=== PATIENT | male | born 1965 | race Caucasian/White ===

== ENCOUNTER 2021-11-09 04:05 | Emergency (ER) | payer OTHER, SELFPAY ==
[2021-11-09 04:06] VITALS: BP 140/83; PULSE 103; RESP 18; TEMP 36.6; O2SAT 99
--- NOTE | 2021-11-09 04:31 | EKG12_ITS ---
Test Reason : CP Blood Pressure : / mmHG Vent. Rate : 097 BPM Atrial Rate : 097 BPM P-R Int : 144 ms QRS Dur : 084 ms QT Int : 338 ms P-R-T Axes : 051 045 058 degrees QTc Int : 429 ms Normal sinus rhythm Septal infarct , age undetermined Abnormal ECG Confirmed by CORWIN SAL, ALEXIA ([id number]), school photograph editor GEOFFREY MENJIVAR ([id number]) on 11/10/2021 1:42:03 PM Referred By: Elsie Confirmed By:ALEXIA OLIVIA MD
[2021-11-09 04:38] LABS: Absolute Lymphocyte Count 2.03 X10^3/uL (0.83-4.51); Absolute Neutrophil Count 7.6 X10^3/uL (2.0-7.7); Basophil# 0.03 X10^3/uL; Basophil% 0.3 % (0-1); Eosinophil# 0.13 X10^3/uL; Eosinophils% 1.2 % (0-5); Hematocrit 50.2 % (40-54); Hemoglobin 16.7 g/dL (13.0-16.5); Lymphocyte # 2.03 X10^3/ul (0.83-4.51); Lymphocyte % 18.8 % (19-41); Mean Corp Hgb Conc 33.3 g/dL (32-36); Mean Corpuscular Hgb 29.2 pg (27.0-32.0); Mean Corpuscular Volume 87.9 fL (80-94); Mean Platelet Vol. 9.7 fl (6.2-12.0); Monocyte# 1.01 X10^3/uL; Monocyte% 9.3 % (0-10); NRBC Flagged by Analyzer 0 % (0-5); Neutrophil # 7.59 X10^3/uL (2.7-7.7); Neutrophil % 70.1 % (47-70); Platelet Count 340 K/mm3 (150-450); RBC Distribution Width CV 12.7 % (11.6-14.6); RBC Distribution Width SD 40.9 fl (35.1-43.9); Red Blood Count 5.71 M/mm3 (4.6-6.2); White Blood Count 10.8 K/mm3 (4.4-11.0)
[2021-11-09] MEDS: 0.9% Normal Saline 1,000 ML 999 ML IV (04:48)
[2021-11-09] MEDS: Aspirin 81 MG TAB.CHEW 243 MG PO (04:49)
[2021-11-09] MEDS: Mag Hydrox/Al Hydrox/Simeth 30 ML UDC PO (04:50)
[2021-11-09 04:52] LABS: International Normalized Ratio 0.9; Prothrombin Time (Protime)PT. 12.2 SECONDS (11.7-14.9)
[2021-11-09 04:53] LABS: Partial Thromboplast Time 30.1 Seconds (24.1-36.2)
--- NOTE | 2021-11-09 04:54 | EDS_ITS ---
HPI History of Present Illness Chief Complaint: Chest Pain Narrative Narrative: Patient is a 56-year-old male with history of diabetes and hypertension. He states he ate lasagna for lunch yesterday afternoon and shortly after this developed some pain in the upper abdomen/lower midline chest. He states that he would was able to take some Tums as well as some Tylenol and the pain got slightly better but did not resolve. He states that as time as 1 on the pain has persisted but now he is noticing pain with inspiration. He denies any recent surgery travel or history of DVT/PE but does report a family history of it. He states that as his symptoms have not resolved he is concerned and secondary to his presents for evaluation. Patient does reiterate that the pain has been constant for over 12 hours at this time [facility] Medical History Diabetes Hypertension Home Medications empagliflozin 10 mg tablet (Jardiance) mg PO DAILY 11/09/21 [History Last Taken Unknown] insulin glargine 100 unit/mL (3 mL) subcutaneous pen (Lantus Solostar U-100 Insulin) 9 unit subcut QHS 11/09/21 [History Last Taken Unknown] lisinopril 10 mg tablet 10 mg PO DAILY 11/09/21 [History Last Taken Unknown] metformin 500 mg tablet,extended release 24 hr 1,000 mg PO BREAKFAST 11/09/21 [History Last Taken Unknown] metformin 500 mg tablet,extended release 24 hr 500 mg PO DINNER 11/09/21 [History Last Taken Unknown] pantoprazole 40 mg tablet,delayed release (Protonix) 40 mg PO DAILY 30 days #30 tabs 11/09/21 [Rx Last Taken Unknown] Allergy/AdvReac Type Severity Reaction Status Date / Time No Known Allergies Allergy Verified 11/09/21 04:16 Social History Smoking Status: Never smoker [facility] ED Constitutional Constitutional ED: Denies chills or fever(s) ENT ENT ED: Denies sore throat Cardiovascular Cardiovascular: Reports chest pain; Denies palpitations or racing heartbeat Respiratory/Chest Respiratory/Chest: Denies cough or dyspnea Gastrointestinal Gastrointestinal: Reports abdominal pain; Denies diarrhea, nausea or vomiting Genitourinary Genitourinary ED: Denies dysuria Musculoskeletal Musculoskeletal: Denies myalgias Integumentary Denies rash Neurologic Neurologic: Denies headache(s) Hematologic/Lymphatic Hematologic/Lymphatic: Denies easy bleeding or easy bruising EXAM Physical Exam Const Vital Signs: 11/09/21 04:06 11/09/21 04:10 Temperature 97.9 F Temperature Source Oral Pulse Rate 103 H Respiratory Rate 18 Respiratory Effort Normal Non-Labored Blood Pressure 140/83 H Blood Pressure Mean 102 Pulse Ox 99 Oxygen Delivery Method Room Air Positive well nourished and well developed General Appearance ED: well developed Eyes PERRL and EOMs intact bilaterally General Eye ED: Negative for scleral icterus Neck supple Resp normal respiratory effort and clear to auscultation bilaterally Cardio regular rhythm Rate: tachycardic and other Other Details: Tachycardic rate with regular rhythm. Radial pulses are plus 2 out of 4 bilaterally are equal and Carotid pulses are equal as well GI normal to inspection, nondistended, normoactive bowel sounds, non-tender and non-distended GI Narrative: No voluntary guarding or rigidity no pulsatile mass Auscultation: normoactive bowel sounds Palpation: soft Extremity normal to inspection Extremity Narrative: No smell edema no pitting edema negative Homans' sign bilaterally Neuro oriented x3 and CN's II-XII intact bilaterally Sensorium / Orientation: alert Psych mental status grossly normal Skin no rashes or lesions noted Skin Narrative: No jaundice noted MDM MDM MDM Narrative Medical decision making narrative: Presented to the ER afebrile but slightly tachycardic. He reported constant chest pain for over 12 hours and therefore I felt if he had a normal EKG and troponin the chance of this being cardiac was low. He does have a family history of DVT/PE and does report prolonged immobilization with sitting for hours at work. His report of chest pain with inspiration as well as these risk factors did lead me to perform a CT scan. The CTA of his chest revealed no pulmonary embolus or dissection. It did show a pulmonary nodule and blebs. These results were discussed with the patient. He understands that there is a chance this could be neoplastic in nature and he will need to follow-up with pulmonology to discuss further testing. However at this time his work-up does not show changes for acute cardiac event and with the changes noted in his lung field he is not hypoxic or having increased work of breathing and therefore I do not feel he needs to be admitted to further work this up. The patient was informed of this and he is agreeable to the plan of care Lab Data Attestation: I reviewed the patient's lab results. Labs: Laboratory Results - last 24 hr 11/09/21 11/09/21 11/09/21 04:10 04:10 04:10 WBC 10.8 RBC 5.71 Hgb 16.7 H Hct 50.2 MCV 87.9 MCH 29.2 MCHC 33.3 RDW Std Deviation 40.9 RDW Coeff of Vandana 12.7 Plt Count 340 MPV 9.7 Immature Gran % (Auto) 0.300 Neut % (Auto) 70.1 H Lymph % (Auto) 18.8 L [place] % (Auto) 9.3 Eos % (Auto) 1.2 Baso % (Auto) 0.3 Absolute Neuts (auto) 7.6 Absolute Lymphs (auto) 2.03 Nucleated RBC % 0 PT 12.2 INR 0.9 APTT 30.1 Sodium 136 Potassium 4.0 Chloride 99 Carbon Dioxide 29.0 Anion Gap 8 BUN 18 Creatinine 0.86 Estim Creat Clear Calc 79.32 Est GFR (MDRD) Af Amer 118 Est GFR (MDRD) Non-Af 97 BUN/Creatinine Ratio 21.0 H Glucose 173 H Calcium 9.6 Magnesium 2.1 Total Bilirubin 0.70 Direct Bilirubin 0.18 AST 24 ALT 26 Alkaline Phosphatase 84 Troponin I High Sens 4 Total Protein 8.0 Albumin 3.8 Globulin 4.2 Lipase 45 L Radiography Diagnostic Testing: Clinical Impression(s) from Imaging Studies Chest CTA 11/09/21 05:10 IMPRESSION: No pulmonary embolism. No aortic dissection. 7.2 mm right lower lobe pulmonary nodule well circumscribed borders with right hilar borderline lymph node and a borderline precarinal lymph node. Recommend correlation with clinical history. Consider follow-up study such as PET scan for further evaluation or could consider a short-term interval follow-up study in 3-6 months to ensure stability. In comparison to a prior study of available would be helpful to establish stability. There is a pattern of multifocal cystic blebs throughout the lungs compatible with underlying cystic lung disease. Consider possibilities such as pulmonary Langerhans'' cell histiocytosis. Correlation with smoking history. Consider prior infection potentially lymphocytic interstitial pneumonia history. Electronically Signed: Tierra Dowell MD at 5:53 EDT , Discharge Plan Triage Chief Complaint: Chest Pain ED Provider: Mauri Zimmerman Dx/Rx/DC Orders Clinical Impression: Pleuritic chest pain, Pulmonary nodule, Lung blebs, Diabetes mellitus Instructions: ED Chest Pain, Uncertain Cause, ED Pulmonary Nodule, Solitary Prescriptions: New pantoprazole [Protonix] 40 mg tablet,delayed release (DR/EC) 40 mg PO DAILY 30 Days Qty: 30 0RF No Action lisinopril 10 mg tablet 10 mg PO DAILY metformin 500 mg tablet extended release 24 hr 1,000 mg PO BREAKFAST metformin 500 mg tablet extended release 24 hr 500 mg PO DINNER insulin glargine [Lantus Solostar U-100 Insulin] 100 unit/mL (3 mL) insulin pen 9 unit SUBCUT QHS Jardiance 10 mg tablet PO DAILY Label Comments: take 1 tablet by mouth daily every morning Primary Care Provider: Yunior Castro Referrals: Chivo Licona MD [Med Staff - Active Staff] - 1 Week Yunior Castro MD [Primary Care Provider] - Activity Restrictions/Additional Instructions: Please follow-up with pulmonology regarding the abnormal findings found on today's chest CT as you may need further testing such as a PET scan biopsy and/or repeat CT scan in the next 3 months. Please return to the ER should you have any further concern Disposition Disposition: Home, Self Care
[2021-11-09 05:03] LABS: AST(SGOT) 24 U/L (15-37); Alanine Aminotransfer ALT/SGPT 26 U/L (16-61); Albumin, Serum 3.8 g/dL (3.2-5.0); Alkaline Phosphatase 84 U/L (45-117); Anion Gap 8 (5-15); BUN 18 mg/dL (7-18); Bilirubin, Direct 0.18 mg/dL (0.00-0.30); Calcium,Total 9.6 mg/dL (8.5-10.1); Chloride 99 mmol/L (98-107); Creatinine, Serum 0.86 mg/dL (0.70-1.30); EST Glomerular Filtration Rate 97 mL/min (>60); Est Glom Filt Rate - Afr Amer 118 mL/min (>60); Estimated Creatinine Clearance 79.32 ml/min; Globulin 4.2 g/dL (2.2-4.2); Glucose 173 mg/dL (74-106); Lipase 45 U/L (73-393); Magnesium 2.1 mg/dL (1.6-2.6); Sodium Level 136 mmol/L (136-145); Troponin-I HS 4 pg/mL (3.0-78.0)
--- NOTE | 2021-11-09 05:10 | CT_ITS ---
STUDY: CTA CHEST REASON FOR EXAM: Male, 56 years old. Chest pain RADIATION DOSAGE (If Supplied By Facility): CTDIvol = ( 4.85 ) mGy, DLP = ( 176.65 ) mGycm TECHNIQUE: The examination was performed with the intravenous administration of 100ML OF ISOVUE 370. Post-processing of the angiographic images was performed, with multiplanar reformation and 3D reconstruction. Individualized dose optimization techniques were used for this CT. COMPARISON: None. FINDINGS: Normal enhancement of the main pulmonary artery and right and left pulmonary arteries. Normal enhancement of the bilateral peripheral pulmonary arteries. There is no demonstrated pulmonary embolism. The aorta is minimally calcified. There is no demonstrated aortic dissection. There is borderline cardiac enlargement with a prominent appearance of the left ventricle. There is a precarinal lymph node measuring 1.2 cm. There is a right hilar lymph node measuring 1.1 cm. Normal visualized trachea and bronchi. Multiple cystic blebs throughout the lungs. These are random distribution and of different sizes. Within the right lower lobe there is a solid-appearing pulmonary nodule measuring 7.2 mm with a trace amount of adjacent inflammatory change. This could potentially represent a small focus of mucus plugging and/or other nodule. No other similar-appearing nodules are demonstrated. Normal pleura. Normal chest wall structures. There are multilevel bridging osteophytes. There is degenerative change within the thoracic spine. There is moderate stool within the visualized colon. CT/CTA Chest W/WO Contrast IMPRESSION: No pulmonary embolism. No aortic dissection. 7.2 mm right lower lobe pulmonary nodule well circumscribed borders with right hilar borderline lymph node and a borderline precarinal lymph node. Recommend correlation with clinical history. Consider follow-up study such as PET scan for further evaluation or could consider a short-term interval follow-up study in 3-6 months to ensure stability. In comparison to a prior study of available would be helpful to establish stability. There is a pattern of multifocal cystic blebs throughout the lungs compatible with underlying cystic lung disease. Consider possibilities such as pulmonary Langerhans'' cell histiocytosis. Correlation with smoking history. Consider prior infection potentially lymphocytic interstitial pneumonia history. Electronically Signed: Tierra Dowell MD at 5:53 EDT ,
[2021-11-09 06:18] VITALS: BP 118/72; PULSE 99; RESP 14; O2SAT 99
== END 2021-11-09 06:39 | disposition home or self-care (01) ==
PROVIDERS: Emergency Provider Emergency Medicine; PCP Family Medicine; Visit Provider Emergency Medicine
DX: R07.81 Pleurodynia (principal); J43.9 Emphysema, unspecified; E11.9 Type 2 diabetes mellitus without complications; Z79.4 Long term (current) use of insulin; I10 Essential (primary) hypertension; R91.1 Solitary pulmonary nodule; Z79.84 Long term (current) use of oral hypoglycemic drugs; Z79.899 Other long term (current) drug therapy; Z83.2 Family history of diseases of the blood and blood-forming organs and certain disorders involving the immune mechanism
CPT/HCPCS: 71275; 80048; 80076; 83690; 83735; 84484; 85025; 85610; 85730; 93005; 96365; 99284; Q9967; A4216

== ENCOUNTER → 2021-11-24 | Outpatient (CLI) | payer OTHER, SELFPAY ==
[2021-11-24] VITALS (11 sets, daily range): BP systolic 107–161; BP diastolic 58–84; PULSE 73–95; RESP 12–21; TEMP 36.9; O2SAT 96–99
--- NOTE | 2021-11-24 | ASPIGT_PTH ---
PATIENT: ANGEL GARCÍA LOC: [place] U#:[id number] AGE/SX: 56/M ROOM: RE11/24/[address]: Dr. Chivo Licona MD : 1965 BED: DIS: 11/24/2021 SPEC #: [id number] RECD: 11/24/21 10:04 STATUS: ROBER JHOANA #: [id number] KITA: 11/24/21 00:[address]: Chivo Licona DEPT: SURGICAL PATHOLOGY RECD BY: Clinton Wu ENTERED: 11/24/21 10:04 SP TYPE: ASP RAD OTHR DR: Dr. Yunior Castro MD Tissues: Lung, NOS Procedures: FNA Specimen Adequacy Special Stain Group II Special Stain Group I Surgery Specimen Level IV AFB Stain (control) GMS Stain (control) Imprint (control) HEADER OPERATION: CT-guided lung biopsy RLL PRE-OP DIAGNOSIS: RLL lung nodule TISSUE SUBMITTED: RLL lung MICROSCOPIC DIAGNOSIS Right lower lobe lung nodule, CT-guided core biopsy: Lung parenchymal tissue with fibrosis, chronic inflammation, necrosis and necrotizing granuloma formation. Negative for malignancy. See comment. Camila 11/27/2021 COMMENT The specimen is evaluated at the time of biopsy by Dr. Headley. Immediate Evaluation = Mildly atypical cells noted. Special stains for acid fast bacilli and fungi are negative for organisms; matched controls are appropriate. Correlation with clinical, radiologic findings and appropriate follow up are necessary. Case has been reviewed in consultation with Dr. Cruz who concurs with the above diagnosis. IDC:AM MICROSCOPIC DESCRIPTION Slides are reviewed. GROSS DESCRIPTION Received in fixative is one container labeled with the patient's name and designated RLL lung. The specimen consists of multiple irregular fragments of hopkins soft tissue that in aggregate measure 1.5 x 0.1 x <0.1 cm. The specimen is totally submitted in one cassette. Two touch imprints are prepared at the time of core biopsy. / Camila 11/24/2021 TC:3 CPT: 27298, 93608, 908306 x2
--- NOTE | 2021-11-24 08:04 | CT_ITS ---
PROCEDURE: CT GUIDED CORE NEEDLE BIOPSY OF A right lower lobe LUNG LESION INDICATION: Male, 56 years old. RLL lung nodule PHYSICIAN: Dr. PRIETO Mullen CONSENT: Written informed consent was obtained having explained the risks, benefits and alternatives in detail with the patient who accepted the risks and agreed to proceed. Laboratory review and clinical assessment was performed. CONSCIOUS SEDATION PROTOCOL: The Drugs used were: 1 mg Versed, IV., and 25 mcg Fentanyl, IV. The sedation time was: 30 minutes. Conscious sedation was started at 9:04 AM and terminated at 9:34 AM. The conscious sedation protocol was independently monitored. RADIATION DOSAGE (If Supplied By Facility): CTDIvol = ( 17 ) mGy, DLP = ( 532.82 ) mGycm Individualized dose optimization techniques were used for this CT. TECHNIQUE: The patient was placed in the prone position. A noncontrast CT was performed to localize the lesion in the right lower lobe . The skin surface was prepped and draped in a sterile fashion. 1% lidocaine was used for local anesthesia. Using CT guidance, a 20-gauge coaxial biopsy device was advanced to the periphery of the lesion. A total of 5 core specimens were obtained. The specimens were placed in a formalin solution. A post procedure CT demonstrated no adverse sequelae or pneumothorax. The patient tolerated the procedure well without adverse event. A negative biopsy does not exclude malignancy. Further imaging or clinical followup based on patient condition and degree of clinical suspicion for malignancy. Suggest rebiopsy, if biopsy results do not match with clinical scenario. CT/Biopsy/Inj or Needle Placement IMPRESSION: 1. CT directed core needle biopsy of the right lower lobe nodule using CT image guidance with image documentation as described. Pathology results are pending. 2. Conscious Sedation protocol utilized with independent monitoring. Electronically Signed: Jesus Celaya MD at 10:11 EDT ,
[2021-11-24] MEDS: Midazolam 2 MG/2 ML Syringe IV (09:04)
[2021-11-24] MEDS: fentaNYL 100 MCG/2 ML Ampul IV (09:04)
[2021-11-24] MEDS: Lidocaine 2% (10 ml mdv) 10 ML Vial INFILT (09:19)
--- NOTE | 2021-11-24 09:30 | RAD_ITS ---
STUDY: X-RAY CHEST REASON FOR EXAM: Male, 56 years old. POST BIOPSY -- Immediately post lung biopsy TECHNIQUE: AP inspiration immediately following a right lung biopsy. COMPARISON: None. FINDINGS: No evidence of pneumothorax on the immediate post right lung biopsy radiographs. RAD/Chest Insp/Exp 2 View IMPRESSION: No evidence of pneumothorax on the immediate post right lung biopsy. Electronically Signed: Jesus Celaya MD at 9:51 EDT ,
--- NOTE | 2021-11-24 11:30 | RAD_ITS ---
STUDY: X-RAY CHEST REASON FOR EXAM: Male, 56 years old. POST BIOPSY -- 2 hours post lung biopsy TECHNIQUE: AP inspiration and expiration views. COMPARISON: Comparison is made with prior study done earlier in the day. FINDINGS: The patient is status post right lower lobe pulmonary nodule biopsy. There is no evidence of pneumothorax on the delayed images. RAD/Chest Insp/Exp 2 View IMPRESSION: No evidence of pneumothorax on the 2 hour delayed radiographs. Electronically Signed: Jesus Celyaa MD at 8:40 EDT ,
== END | disposition home or self-care (01) ==
LOC: CT 08:04
PROVIDERS: PCP Family Medicine; Referring Provider Internal Medicine Critical Care Medicine; Visit Provider Internal Medicine Critical Care Medicine
DX: J84.10 Pulmonary fibrosis, unspecified (principal)
CPT/HCPCS: 32408; 71046; 77012; 88172; 88305; 88312; 88313; 99156; 99157; J7050; A4216; C2613

== ENCOUNTER → 2021-12-06 | Outpatient (CLI) | payer OTHER, SELFPAY ==
--- NOTE | 2021-12-06 12:42 | PFT ---
INTRODUCTION: The patient is a 56-year-old male that presents for pulmonary function studies secondary to a diagnosis of lung nodule. Respiratory therapy reported good patient effort. Bronchodilators were used during testing. INTERPRETATION: Forced expiration spirometry demonstrates no evidence of a large airways obstructive ventilatory defect. There was no significant response to aerosolized bronchodilators. Spirograms are of good quality and plateau normally. Body plethysmography was performed and reveals lung volumes to be within normal limits. Diffusing capacity by single breath CO is also within normal limits. IMPRESSION: Grossly normal pulmonary function studies.
== END | disposition home or self-care (01) ==
LOC: PSN 10:29
PROVIDERS: PCP Family Medicine; Referring Provider Internal Medicine Critical Care Medicine; Visit Provider Internal Medicine Critical Care Medicine
DX: R91.1 Solitary pulmonary nodule (principal)
CPT/HCPCS: 94060; 94726; 94729

== ENCOUNTER → 2022-01-26 | Outpatient (CLI) | payer OTHER, SELFPAY ==
--- NOTE | 2022-01-26 12:52 | CT_ITS ---
STUDY: CT CHEST WITHOUT CONTRAST REASON FOR EXAM: Male, 56 years old. 3 month F/U RLL nodule RADIATION DOSAGE (If Supplied By Facility): CTDIvol = ( 5.18 ) mGy, DLP = ( 197.11 ) mGycm TECHNIQUE: Transaxial imaging was performed without the administration of intravenous contrast material. Multiplanar coronal and sagittal images were reformatted. Individualized dose optimization techniques were used for this CT. COMPARISON: Comparison is made with prior study dated 11/09/2021. FINDINGS: CHEST Scattered bulla are seen in the upper lobes. Bulla are also seen in the lower lobes. There is a 7.3 mm x 13.4 mm irregular nodular density in the posterior medial segment of the right lower lobe. This has increased in size as compared to prior study. Correlation with PET scan and/or biopsy recommended. There is no demonstrated pleural abnormality. There are calcifications of the coronary arteries. Normal mediastinum. Normal hilar regions. Normal unenhanced pulmonary arteries. Mild degree of atherosclerotic plaque formation of the aortic arch. There are multi-level degenerative changes of the thoracic spine. There is no demonstrated abnormality of the visualized upper abdomen. CT/Chest without Contrast IMPRESSION: Increase in size of the irregular nodule in the posterior aspect of the right lower lobe as described. Correlation with PET scan and/or biopsy recommended. Electronically Signed: Jesus Celaya MD at 13:41 EDT ,
== END | disposition home or self-care (01) ==
LOC: CT 12:51
PROVIDERS: PCP Family Medicine; Referring Provider Internal Medicine Critical Care Medicine; Visit Provider Internal Medicine Critical Care Medicine
DX: R91.1 Solitary pulmonary nodule (principal)
CPT/HCPCS: 71250

== ENCOUNTER → 2022-05-05 | Outpatient (CLI) | payer OTHER, SELFPAY ==
--- NOTE | 2022-05-05 08:00 | CT_ITS ---
INDICATION: 1 cm lung mass EXAMINATION: CT CHEST WITHOUT CONTRAST - CT Chest W/O Contrast Injection TECHNIQUE: Helically acquired images were obtained of the chest. A radiation dose optimization technique was used for this scan. IV Contrast dosage and agent: None. COMPARISON: CT chest 01/26/2022. Images and report. FINDINGS: LUNGS: The nodule in the right lower lobe 12 x 9 mm, not significantly changed in measurement compared to the prior study but appears more rounded configuration especially on the sagittal reformats. Scattered small adjacent nodules and reticular changes also appear increased. No remote nodules identified. Emphysematous changes.. LARGE AIRWAYS: Unremarkable. PLEURA: No pleural effusion. No pneumothorax. MEDIASTINUM: Unremarkable. HEART: Not enlarged. Minimal coronary artery calcifications. AORTA/VESSELS: No aortic aneurysm. ESOPHAGUS: Unremarkable. with UPPER ABDOMEN: No acute findings. BONES/SOFT TISSUES: No acute abnormality. OTHER/LINES: None. CT/Chest without Contrast IMPRESSION: Slightly increased size of the 12 mm nodule in the right lower lobe and increased adjacent small nodular components. As previously recommended, correlation with PET/CT and/or biopsy recommended. Electronically Signed: Halie Gary MD at 5:58 EST ,
== END | disposition home or self-care (01) ==
LOC: CT 07:58
PROVIDERS: PCP Family Medicine; Referring Provider Nurse Practitioner Acute Care; Visit Provider Nurse Practitioner Acute Care
DX: R91.1 Solitary pulmonary nodule (principal)
CPT/HCPCS: 71250

== ENCOUNTER → 2022-07-13 | Outpatient (CLI) | payer OTHER, SELFPAY ==
--- NOTE | 2022-07-13 10:01 | RAD_ITS ---
STUDY: X-RAY CHEST REASON FOR EXAM: Male, 57 years old. Postop from lobectomy TECHNIQUE: PA and lateral views of the chest. COMPARISON: 11/24/2021 FINDINGS: There is volume loss in the right hemithorax with a right pneumothorax affecting approximately 50% of the right hemithorax without mediastinal shift. There is blunting of the right costophrenic angles suggesting free-flowing effusion. Left lung is clear and well expanded without evidence of a superimposed process. Normal size heart. Normal mediastinum and desiree. Normal visualized pulmonary arteries. Normal visualized aortic arch and descending thoracic aorta. There are diffuse degenerative changes of the visualized thoracic spine. Normal visualized ribs, clavicles, and shoulders. Small amount of subcutaneous emphysema along the right chest There is no demonstrated abnormality of the visualized soft tissue structures of the upper abdomen. RAD/Chest PA and Lateral IMPRESSION: 15% right-sided pneumothorax without mediastinal shift Right pleural effusion Left lung is free of a superimposed acute pulmonary process Right subcutaneous emphysema Electronically Signed: Silver Gauthier MD at 10:25 EDT ,
== END | disposition home or self-care (01) ==
PROVIDERS: PCP Family Medicine
DX: J90 Pleural effusion, not elsewhere classified (principal)
CPT/HCPCS: 71046

== ENCOUNTER → 2022-07-25 | Outpatient (CLI) | payer OTHER, SELFPAY ==
--- NOTE | 2022-07-25 12:11 | RAD_ITS ---
EXAM: XR CHEST, 2 VIEWS CLINICAL INDICATION: pleural effusion right TECHNIQUE: Frontal and lateral views of the chest. This report was created using [employer] report generation technology. COMPARISON: 07/13/2022 FINDINGS: LUNGS AND PLEURAL SPACES: Right-sided effusion is unchanged. There has been resolution of a right-sided pneumothorax. HEART: Unremarkable. Cardiac silhouette not enlarged. MEDIASTINUM: Central airways and mediastinal contour are unremarkable. BONES/JOINTS: Unremarkable. SOFT TISSUES: Unremarkable. RAD/Chest PA and Lateral IMPRESSION: No change in the right-sided effusion. There has been resolution of a right-sided pneumothorax. Electronically Signed: Yuan Haro MD at 0:08 EDT ,
== END | disposition home or self-care (01) ==
LOC: RAD 12:11
PROVIDERS: PCP Family Medicine; Referring Provider Nurse Practitioner Acute Care; Visit Provider Nurse Practitioner Acute Care
DX: J90 Pleural effusion, not elsewhere classified (principal)
CPT/HCPCS: 71046

== ENCOUNTER → 2022-07-27 | Outpatient (CLI) | payer OTHER, SELFPAY ==
--- NOTE | 2022-07-27 11:28 | US_ITS ---
PROCEDURE: ULTRASOUND GUIDED THORACENTESIS. DATE: July 27, 2022. INDICATION: Male, 57 years old. Right pleural effusion. PHYSICIAN: Jesus Celaya M.D. PROCEDURE: The risks, benefits, and alternatives to the procedure were explained to the patient. The specific risks of bleeding, infection, and pneumothorax requiring chest tube insertion were discussed and accepted. Written informed consent was obtained. Ultrasonographic evaluation of the right lower pleural space was carried out. An adequate pocket was identified. The patient was placed in the sitting, upright position. The overlying skin was prepped and draped in sterile fashion. 1% lidocaine was administered subcutaneously for local anesthesia. Under ultrasound guidance, a 5 [place] thoracentesis needle/catheter system was advanced into the right posterior lower pleural fluid collection. Approximately 200 mL of bloody fluid was drained. The catheter was removed, and a sterile dressing was applied. A specimen was collected and sent to the laboratory for analysis, as requested by the referring clinician. The patient tolerated the procedure well. A chest x-ray was ordered. US/Thoracentesis W US IMPRESSION: Ultrasound-guided right thoracentesis. Electronically Signed: Jesus Celaya MD at 12:50 EDT ,
[2022-07-27 12:05] VITALS: BP 148/90; BP 149/87; BP 152/90; PULSE 117; PULSE 122; PULSE 133; RESP 18; TEMP 37.7; O2SAT 97; O2SAT 98
[2022-07-27] MEDS: Lidocaine 2% (20 ml mdv) 20 ML Vial INFILT (12:07)
--- NOTE | 2022-07-27 12:10 | FLU_PTH ---
PATIENT: ANGEL GARCÍA LOC: [facility]#:[id number] AGE/SX: 57/M ROOM: RE07/27/[address]: SARI Mitchell : 1965 BED: DIS: 07/27/2022 SPEC #: [id number] RECD: 07/27/22 13:55 STATUS: ROBER ELY #: [id number] KITA: 07/27/22 12:[address]: Annie Self NP DEPT: CYTOLOGY RECD BY: Catalina Bedoya ENTERED: 07/27/22 13:56 SP TYPE: Fluid OTHR DR: Dr. Yunior Castro MD Tissues: Pleural fluid, NOS Procedures: Special Stain Group II Surgery Specimen Level IV Cytospin Fluid HEADER OPERATION: Thoracentesis right PRE-OP DIAGNOSIS: Right pleural effusion TISSUE SUBMITTED: Thoracentesis fluid for cytology DIAGNOSIS CYTOLOGY Thoracentesis fluid for cytology (cell block): Negative for malignant cells. See comment. SJ:ni 08/01/2022 COMMENT Flow cytometry study from [facility] shows no immunophenotypic evidence of a monoclonal B cell or aberrant T cell population detected. The complete report is viewable in EMR. CYTOLOGY STUDY Slides are reviewed. CYTOLOGY GROSS Received is 80 ml of dark red cloudy fluid labeled with the patient's name and and designated per the requisition as thoracentesis. Submitted for cytology preparation including cell block. / ni 07/27/2022 TC:5 CPT: 98519, 75364
--- NOTE | 2022-07-27 12:15 | RAD_ITS ---
STUDY: X-RAY CHEST REASON FOR EXAM: Male, 57 years old. Post thora TECHNIQUE: AP inspiration and expiration views. COMPARISON: Comparison is made with prior study dated on July 25, 2022. FINDINGS: The patient is status post right thoracentesis. No evidence of pneumothorax. Mild residual pleural-parenchymal changes at the right lung base. RAD/Chest Insp/Exp 2 View IMPRESSION: Status post right thoracentesis. No evidence of pneumothorax. Residual pleural parenchymal changes at the right lung base. Electronically Signed: Jesus Celaya MD at 8:31 EDT ,
[2022-07-27 12:26] LABS: Platelet Count 513 K/mm3 (150-450)
[2022-07-27 12:35] LABS: Cytology, Body Fluid / CSF SEE PATHOLOGY REPORT
[2022-07-27 12:38] LABS: International Normalized Ratio 0.9; Prothrombin Time (Protime)PT. 12.6 SECONDS (11.7-14.9)
[2022-07-27 12:39] LABS: Partial Thromboplast Time 29.9 Seconds (24.1-36.2)
[2022-07-27 12:42] LABS: ALB/GLOB Ratio 0.7 RATIO (0.9-2.4); Globulin 4.6 g/dL (2.2-4.2); LDH 129 U/L (87-241); Protein, Total 7.8 g/dL (6.4-8.2)
[2022-07-27 12:55] LABS: Body Fluid Mononuclear WBC # 3.275 10^3/uL; Body Fluid Mononuclear WBC % 97.9 %; Body Fluid Polynuclear WBC # 0.072 10^3/uL; Body Fluid Polynuclear WBC % 2.1 %; Body Fluid Total Cells Counted 3.371 10^3/ul; Red Cell Count/Body Fluid 0.085 10^6/ul; White Blood Count/Body Fluid 3.347 10^3/uL
[2022-07-27 13:00] LABS: Auto B Fluid Analyzer BKGD Ct COUNTS W/IN LIMITS (W/IN LIMITS)
[2022-07-27 13:01] LABS: Appearance/Body Fluid CLOUDY; Color/Body Fluid RED; Source- Body Fluid THORACENTESIS
[2022-07-27 13:26] LABS: Body Fluid QC Type(s) BF2; Lymphocytes 99 %; Other Cell Type/BF 1 %
[2022-07-27 13:35] LABS: LDH,Body Fluid 183 Units/l (Not Establ.); Protein, Body Fluid 4.3 g/dL (Not Establ.)
[2022-07-31 09:52] LABS: Pathologist Comment/Body Fluid Reviewed
[2022-08-01 14:08] LABS: Miscellaneous Lab Procedure SEE PATH REPORT
== END | disposition home or self-care (01) ==
PROVIDERS: Internal Medicine Critical Care Medicine; PCP Family Medicine; Referring Provider Nurse Practitioner Acute Care; Visit Provider Nurse Practitioner Acute Care
DX: J90 Pleural effusion, not elsewhere classified (principal)
CPT/HCPCS: 32555; 36415; 71046; 83615; 84156; 84157; 85049; 85610; 85730; 87070; 87075; 87205; 88108; 88305; 88313; 89050

== ENCOUNTER → 2022-08-06 | Outpatient (CLI) | payer OTHER, SELFPAY ==
--- NOTE | 2022-08-06 09:28 | RAD_ITS ---
STUDY: X-RAY CHEST REASON FOR EXAM: Male, 57 years old. Pleural effusion TECHNIQUE: PA and lateral views of the chest. COMPARISON: Comparison is made with prior study July 27, 2022. FINDINGS: Since prior study, there has been a mild degree of increased right pleural effusion with right basilar atelectasis and/or infiltrate. Normal size heart. Normal mediastinum and desiree. Normal visualized pulmonary arteries. Normal visualized aortic arch and descending thoracic aorta. There are diffuse degenerative changes of the visualized thoracic spine. Normal visualized ribs, clavicles, and shoulders. There is no demonstrated abnormality of the visualized soft tissue structures of the upper abdomen. RAD/Chest PA and Lateral IMPRESSION: Slight increase in size of the right pleural effusion with right basilar atelectasis and/or infiltration. Electronically Signed: Jesus Celaya MD at 11:05 EDT ,
[2022-08-06 09:39] LABS: Absolute Neutrophil Count 6.3 X10^3/uL (2.0-7.7); Basophil# 0.05 X10^3/uL; Basophil% 0.5 % (0-1); Eosinophil# 0.15 X10^3/uL; Eosinophils% 1.6 % (0-5); Hematocrit 42.7 % (40-54); Hemoglobin 13.7 g/dL (13.0-16.5); Lymphocyte % 21.6 % (19-41); Mean Corp Hgb Conc 32.1 g/dL (32-36); Mean Corpuscular Hgb 27.8 pg (27.0-32.0); Mean Corpuscular Volume 86.8 fL (80-94); Mean Platelet Vol. 8.8 fl (6.2-12.0); Monocyte# 0.76 X10^3/uL; Monocyte% 8.2 % (0-10); NRBC Flagged by Analyzer 0 % (0-5); Neutrophil # 6.29 X10^3/uL (2.7-7.7); Neutrophil % 67.8 % (47-70); Platelet Count 622 K/mm3 (150-450); RBC Distribution Width CV 11.9 % (11.6-14.6); Red Blood Count 4.92 M/mm3 (4.6-6.2); White Blood Count 9.3 K/mm3 (4.4-11.0)
== END | disposition home or self-care (01) ==
LOC: LAB 09:13
PROVIDERS: PCP Family Medicine; Referring Provider Internal Medicine; Visit Provider Internal Medicine
DX: J90 Pleural effusion, not elsewhere classified (principal)
CPT/HCPCS: 36415; 71046; 85025